=== PATIENT | female | born 1970 | race Caucasian/White ===

== ENCOUNTER 2025-04-18 08:07 | Outpatient (CLI) | payer OTHER | END 2025-04-18 08:29 | disposition home or self-care (01) | LOC: SONOGRAMA 08:07 | PROVIDERS: ATTEND Physical Medicine & Rehabilitation Hospice and Palliative Medicine | DX: M25.571 Pain in right ankle and joints of right foot (principal); M25.572 Pain in left ankle and joints of left foot; M76.61 Achilles tendinitis, right leg; M76.62 Achilles tendinitis, left leg ==